=== PATIENT | female | born 1990 | race Caucasian/White ===

== ENCOUNTER 2018-12-24 11:57 | Emergency (ER) | payer MEDICAID ==
[~2018-12-24] VITALS: Ht 170.2 cm; Wt 99.8 kg
--- NOTE | 2018-12-24 12:05 | NUR ---
ED Nurse Note: Patient walked in to ER due to general body pain. She stated that she has diarrhea yesterday after eating certain food. Patient has fever 99F. Alert and oriented x4, verbally responsive. Breathing even and unlabored. No SOB.
[2018-12-24] MEDS ORDERED: NKM (12:12)
[2018-12-24 12:39] VITALS: BP 128/78
[2018-12-24 13:01] LABS: EOSINOPHILS % (AUTO) 0.2 % (0.0-3.0); HEMATOCRIT 42.9 % (37.0-47.0); HEMOGLOBIN 14.4 G/DL (12.0-16.0); LYMPHOCYTES % (AUTO) 11.1 % (20.0-45.0); MEAN CORPUSCULAR VOLUME 93 FL (80-99); MONOCYTES % (AUTO) 3.7 % (1.0-10.0); NEUTROPHILS % (AUTO) 84.1 % (45.0-75.0); PLATELET COUNT 303 K/UL (150-450); RED BLOOD COUNT 4.62 M/UL (4.20-5.40); RED CELL DISTRIBUTION WIDTH 11.5 % (11.6-14.8); WHITE BLOOD COUNT 11.4 K/UL (4.8-10.8)
[2018-12-24 13:05] LABS: APPEARANCE,URINE CLEAR; BILIRUBIN, URINE NEGATIVE (NEGATIVE); GLUCOSE, URINE (UA) NEGATIVE (NEGATIVE); KETONES,URINE 4+ (NEGATIVE); LEUKOCYTE ESTERASE ,URINE 2+ (NEGATIVE); NITRITE,URINE NEGATIVE (NEGATIVE); PH,URINE 6 (4.5-8.0); PROTEIN,URINE 1+ (NEGATIVE); UROBILINOGEN,URINE 1 MG/DL (0.0-1.0)
[2018-12-24 13:09] LABS: INR 1.1 (0.9-1.1)
[2018-12-24 13:12] LABS: COLOR,URINE YELLOW
[2018-12-24 13:48] LABS: ANION GAP 10 mmol/L (5-15); BLOOD UREA NITROGEN 9 mg/dL (7-18); CALCIUM 9.4 MG/DL (8.5-10.1); CARBON DIOXIDE 27 MMOL/L (21-32); CHLORIDE 100 MMOL/L (98-107); CREATININE 0.7 MG/DL (0.55-1.30); POTASSIUM 3.1 MMOL/L (3.5-5.1); SODIUM 137 MMOL/L (136-145)
[2018-12-24 13:53] LABS: ALANINE AMINOTRANSFERASE 12 U/L (12-78); ALBUMIN 3.7 G/DL (3.4-5.0); ALBUMIN/GLOBULIN RATIO 0.9 (1.0-2.7); ALKALINE PHOSPHATASE 65 U/L (46-116); ASPARTATE AMINO TRANSFERASE 15 U/L (15-37); BILIRUBIN,TOTAL 0.4 MG/DL (0.2-1.0)
[2018-12-24 13:58] VITALS: BP 124/80
[2018-12-24] MEDS ORDERED: ZOFRAN4 M3 ORAL (14:01)
[2018-12-24] MEDS ORDERED: CLINDESSE5.8 GM TOPIC (14:01)
[2018-12-24] MEDS ORDERED: TYLENOL EXTRA500 MG ORAL (14:01)
[2018-12-24] MEDS ORDERED: CLINDAMYCIN PHO TP (14:06)
[2018-12-24 14:18] VITALS: BP 121/60
--- NOTE | 2018-12-24 14:20 | NUR ---
ER DISCHARGE NOTE: Patient is cleared to be discharged per ERMD, pt is aox4, on room air, with stable vital signs. pt was given dc and prescription instructions, pt was able to verbalize understanding, pt id band and iv site removed without complications. pt is able to ambulate with steady gait. pt took all belongings.
--- NOTE | 2018-12-24 22:14 | Emergency Room Report ---
History of Present Illness General Chief Complaint: General Complaint Source: Patient Present Illness HPI The patient is a 28-year-old female primarily presenting for abdominal pain, nausea, and diarrhea after eating at a restaurant yesterday. Episode of diarrhea lasted approximately 2 hours yesterday and improved after using Imodium. She denies any blood in the stool. She does admit to feeling chills. She denies other symptoms including fever, dizziness, headache, chest pain, shortness of breath, melena, hematochezia, vomiting Allergies: Coded Allergies: IBUPROFEN (Verified Allergy, Intermediate, 12/24/18) PENICILLINS (Verified Adverse Reaction, Intermediate, 12/24/18) Patient History Past Medical History: see triage record Pertinent Family History: none Last Menstrual Period: some time in November Now: No Reviewed Nursing Documentation: PMH: Agreed; PSxH: Agreed Nursing Documentation-PMH Past Medical History: No History, Except For Hx Asthma: Yes Review of Systems All Other Systems: negative except mentioned in HPI Physical Exam Vital Signs Date Time Temp Pulse Resp B/P (MAP) Pulse Ox O2 Delivery O2 Flow Rate FiO2 12/24/18 12:04 99.9 96 19 148/89 (108) 97 Room Air Sp02 EP Interpretation: reviewed, normal General Appearance: no apparent distress, alert, GCS 15, non-toxic Head: normocephalic, atraumatic Respiratory: chest non-tender, lungs clear, normal breath sounds, speaking full sentences Cardiovascular #1: regular rate, rhythm, no edema Gastrointestinal: tenderness - epigastric Rectal: deferred Genitourinary: normal inspection, no CVA tenderness Musculoskeletal: back normal, gait/station normal, normal range of motion, non- tender Neurologic: alert, oriented x3, responsive, motor strength/tone normal, sensory intact, speech normal Psychiatric: judgement/insight normal, memory normal, mood/affect normal, no suicidal/homicidal ideation Skin: other - nodules of axilla, TTP Medical Decision Making PA Attestation Dr. Blue is my supervising physician. Patient management was discussed with my supervising physician Diagnostic Impression: Primary Impression: Gastroenteritis Additional Impression: Hidradenitis suppurativa ER Course he patient is a 28-year-old female primarily presenting for abdominal pain, nausea, and diarrhea after eating at a restaurant yesterday Differential diagnoses considered but not limited to: Gastroenteritis, GERD, gastritis, appendicitis, pancreatitis, among others PE: Vitals stable. Temp 99.9F initially NAD. Abdomen: Normal appearance. Non distended. No ecchymosis. Increased BS. + Epigastric TTP. No McBurney point tenderness. No guarding. No CVA tenderness Bilateral axilla have multiple nodules/pustules. Tender to palpation Labs: Leukocytosis of 11.4 Urinalysis unremarkable Lipase unremarkable Symptoms have improved after Tylenol and Zofran Patient will be discharged home with the same medication as well as clindamycin cream to be used for her hidradenitis suppurativa. She has been seen by a surgeon and was told to follow-up with them but she did not. She will now obtain an appointment as discussed for treatment for hidradenitis suppurativa. She is told to take in plenty of fluids. Pedialyte discussed. Brat diet discussed ER precautions discussed. Laboratory Tests Test 12/24/18 12:30 12/24/18 13:20 White Blood Count 11.4 K/UL (4.8-10.8) H Red Blood Count 4.62 M/UL (4.20-5.40) Hemoglobin 14.4 G/DL (12.0-16.0) Hematocrit 42.9 % (37.0-47.0) Mean Corpuscular Volume 93 FL (80-99) Mean Corpuscular Hemoglobin 31.2 PG (27.0-31.0) H Mean Corpuscular Hemoglobin Concent 33.6 G/DL (32.0-36.0) Red Cell Distribution Width 11.5 % (11.6-14.8) L Platelet Count 303 K/UL (150-450) Mean Platelet Volume 6.1 FL (6.5-10.1) L Neutrophils (%) (Auto) 84.1 % (45.0-75.0) H Lymphocytes (%) (Auto) 11.1 % (20.0-45.0) L Monocytes (%) (Auto) 3.7 % (1.0-10.0) Eosinophils (%) (Auto) 0.2 % (0.0-3.0) Basophils (%) (Auto) 1.0 % (0.0-2.0) Prothrombin Time 11.6 SEC (9.30-11.50) H Prothrombin Time INR 1.1 (0.9-1.1) PTT 31 SEC (23-33) Urine Color Yellow Urine Appearance Clear Urine pH 6 (4.5-8.0) Urine Specific [place] 1.015 (1.005-1.035) Urine Protein 1+ (NEGATIVE) H Urine Glucose (UA) Negative (NEGATIVE) Urine Ketones 4+ (NEGATIVE) H Urine Blood 1+ (NEGATIVE) H Urine Nitrite Negative (NEGATIVE) Urine Bilirubin Negative (NEGATIVE) Urine Urobilinogen 1 MG/DL (0.0-1.0) H Urine Leukocyte Esterase 2+ (NEGATIVE) H Urine RBC 0-2 /HPF (0 - 2) Urine WBC 2-4 /HPF (0 - 2) Urine Squamous Epithelial Cells Few /LPF (NONE/OCC) Urine Bacteria Few /HPF (NONE) Urine HCG, Qualitative Negative (NEGATIVE) Sodium Level 137 MMOL/L (136-145) Potassium Level 3.1 MMOL/L (3.5-5.1) L Chloride Level 100 MMOL/L (98-107) Carbon Dioxide Level 27 MMOL/L (21-32) Anion Gap 10 mmol/L (5-15) Blood Urea Nitrogen 9 mg/dL (7-18) Creatinine 0.7 MG/DL (0.55-1.30) Estimate Glomerular Filtration Rate > 60 mL/min (>60) Glucose Level 100 MG/DL (74-106) Calcium Level 9.4 MG/DL (8.5-10.1) Total Bilirubin 0.4 MG/DL (0.2-1.0) Aspartate Amino Transferase (AST) 15 U/L (15-37) Alanine Aminotransferase (ALT) 12 U/L (12-78) Alkaline Phosphatase 65 U/L (46-116) Total Protein 7.6 G/DL (6.4-8.2) Albumin 3.7 G/DL (3.4-5.0) Globulin 3.9 g/dL Albumin/Globulin Ratio 0.9 (1.0-2.7) L Lipase 62 U/L (73-393) L Lab Results Impression Leukocytosis of 11.4 Urinalysis unremarkable Last Vital Signs Date Time Temp Pulse Resp B/P (MAP) Pulse Ox O2 Delivery O2 Flow Rate FiO2 12/24/18 14:18 98.1 72 18 121/60 Room Air 12/24/18 12:04 97 Status: improved Disposition: HOME, SELF-CARE Condition: Improved Scripts Clindamycin Phosphate (Clindamycin Phosphate) 75 Ml Gel.daily 1 APPLIC TP BID, #75 ML Prov: ANANTH EAGLE 12/24/18 Ondansetron* (ZOFRAN*) 4 Mg Tablet 4 MG ORAL Q6H PRN for Nausea & Vomiting, #10 TAB Prov: ANANTH EAGLE.AAiram 12/24/18 Acetaminophen* (TYLENOL EXTRA STRENGTH*) 500 Mg Tablet 500 MG ORAL Q8H PRN for Prn Headache/Temp > 101, #30 TAB 0 Refills Prov: ANANTH EAGLE.AAiram 12/24/18 Referrals: [facility],REFERRING (PCP) Departure Forms: Return to Work Return to Work Date: Dec 27, 2018 Patient Instructions: Gastroesophageal Reflux Disease, Adult, Hidradenitis Suppurativa Additional Instructions: I discussed my findings with the patient. All questions and concerns have been answered. Treatment and medication compliance have been addressed. I advised the patient that they need to follow up with PMD in 3-5 days. Return to ED if symptoms worsen, new symptoms arise, or if needed for any reason. Patient verbalized understanding of discharge instructions. ANANTH EAGLE Dec 24, 2018 22:14
== END 2018-12-24 14:18 | disposition home or self-care (01) ==
LOC: EMR 12:30
DX: K52.9 Noninfective gastroenteritis and colitis, unspecified (principal); L73.2 Hidradenitis suppurativa; Z88.0 Allergy status to penicillin; Z88.6 Allergy status to analgesic agent; D72.829 Elevated white blood cell count, unspecified
CPT/HCPCS: 36415; 80053; 81003; 81025; 83690; 85025; 85610; 85730; 96374; 99284; J2405

== ENCOUNTER 2019-02-14 13:38 | Emergency (ER) | payer MEDICAID, OTHER ==
[~2019-02-14] VITALS: Ht 170.2 cm; Wt 86.2 kg
[~2019-02-14 13:38] MED LIST: CLINDAMYCIN PHO TP; CLINDESSE5.8 GM TOPIC; NKM; TYLENOL EXTRA500 MG ORAL; ZOFRAN4 M3 ORAL
--- NOTE | 2019-02-14 13:55 | NUR ---
ED Nurse Note: PT WALKED IN TO ER TODAY FROM WORK. AOX4. PT C/O LOWER BACK PAIN, 7/10 X TODAY AFTER ATTEMPTING TO PULL UP A HEAVY PT WHILE AT WORK. GAIT STEADY. PT DENIES ANY NUMBNESS OR TINGLING. FULL ROM OF ALL EXTREMITIES AND 5/5 MUSCLE STRENGTH.
[2019-02-14 13:56] VITALS: BP 136/88
[2019-02-14] MEDS ORDERED: Tylenol #3 tab (300mg/30mg) ORAL ONE (14:00)
--- NOTE | 2019-02-14 14:03 | NUR ---
ED Nurse Note: RADIOLOGY CALLED FOR XRAY. PT REFUSED URINE - WAIVER SIGNED BY PT AND WITNESSED BY PRIMARY RN.
[2019-02-14] MEDS ORDERED: Dexamethasone 4mg/ml vial IM ONE (14:15)
--- NOTE | 2019-02-14 14:34 | NUR ---
ED Nurse Note: PT BACK FROM CT VIA WHEELCHAIR.
--- NOTE | 2019-02-14 14:53 | Emergency Room Report ---
History of Present Illness General Chief Complaint: Lower Back Pain or Injury Source: Patient Present Illness HPI 29-year-old female with no significant past medical history here complaining of a 10 out of 10 pain and right lower back that started yesterday at work. Patient reports that she was trying to lift the patient and felt a pull in her right lower back however did not directly fall on her back. Denies any pain radiation, denies tingling and numbness, denies saddle paresthesia, urinary bowel incontinence. Patient has taken Tylenol with minimal relief. Patient reports that she is allergic to ibuprofen however it only makes her itchy but does not make her swell. Patient reports that her last menstrual period was 1 week ago and denies . Denies all other injury. Denies chest pain, shortness of breath, palpitation, abdominal pain, nausea vomiting. Allergies: Coded Allergies: IBUPROFEN (Verified Allergy, Intermediate, 12/24/18) PENICILLINS (Verified Adverse Reaction, Intermediate, 12/24/18) Patient History Past Medical History: see triage record Past Surgical History: unable to obtain Pertinent Family History: none Last Menstrual Period: 02/06/19 Now: No Immunizations: UTD Reviewed Nursing Documentation: PMH: Agreed; PSxH: Agreed Nursing Documentation-PMH Past Medical History: No History, Except For Hx Asthma: Yes Review of Systems All Other Systems: negative except mentioned in HPI Physical Exam Vital Signs Date Time Temp Pulse Resp B/P (MAP) Pulse Ox O2 Delivery O2 Flow Rate FiO2 02/14/19 13:42 97.9 76 17 142/95 (111) 99 Room Air Sp02 EP Interpretation: reviewed, normal General Appearance: no apparent distress, alert, GCS 15, non-toxic Head: normocephalic, atraumatic Eyes: bilateral eye normal inspection, bilateral eye PERRL ENT: hearing grossly normal, normal pharynx, no angioedema, normal voice Neck: full range of motion, supple, supple/symm/no masses Respiratory: chest non-tender, lungs clear, normal breath sounds, no rhonchi, no wheezing, speaking full sentences Cardiovascular #1: regular rate, rhythm, no edema, no murmur, normal capillary refill Cardiovascular #2: 2+ dorsalis pedis (R), 2+ dorsalis pedis (L) Gastrointestinal: normal bowel sounds, non tender, soft, non-distended, no guarding, no rebound Genitourinary: normal inspection, no CVA tenderness Musculoskeletal: digits/nails normal, gait/station normal, normal range of motion, non-tender, no calf tenderness, pelvis stable Neurologic: alert, oriented x3, responsive, motor strength/tone normal, sensory intact, speech normal Psychiatric: judgement/insight normal, memory normal, mood/affect normal, no suicidal/homicidal ideation Skin: no rash Lymphatic: no adenopathy Medical Decision Making PA Attestation All my diagnosis and treatment plans were reviewed ad discussed with my supervising physician Dr. Llanes Diagnostic Impression: Primary Impression: Lumbar strain ER Course 29-year-old female with no significant past medical history here complaining of a 10 out of 10 pain and right lower back that started yesterday at work. Patient reports that she was trying to lift the patient and felt a pull in her right lower back however did not directly fall on her back. Denies any pain radiation, denies tingling and numbness, denies saddle paresthesia, urinary bowel incontinence. Patient has taken Tylenol with minimal relief. Patient reports that she is allergic to ibuprofen however it only makes her itchy but does not make her swell. Patient reports that her last menstrual period was 1 week ago and denies . Denies all other injury. Denies chest pain, shortness of breath, palpitation, abdominal pain, nausea vomiting. Ddx considered but are not limited to: Lumbar spine sprain, strain, fracture, contusion, neuropathy Vital signs: are WNL, pt. is afebrile H&PE are most consistent with: lumbar strain ORDERS: Lumbar spine x-ray, prednisone, flexeril, tylenol. ER intervention: dexametasone DISCHARGE: At this time pt. is stable for d/c to home. Will provide printed patient care instructions, and any necessary prescriptions. Care plan and follow up instructions have been discussed with the patient prior to discharge. I advised the patient to follow-up with her primary care provider and also get a referral for physical therapy take medication as directed if worsening symptoms return to the emergency room Other X-Ray Diagnostic Results Other X-Ray Diagnostic Results : X-Ray ordered: lumbar X ray # of Views/Limited Vs Complete: 3 View Indication: Pain EP Interpretation: Yes YOSEPH Xray: Interpretation reviewed, by supervising MD, and agrees with findings. Interpretation: no dislocation, no soft tissue swelling, no fractures Impression: No acute disease Electronically Signed by: Noel Velez PA-C Last Vital Signs Date Time Temp Pulse Resp B/P (MAP) Pulse Ox O2 Delivery O2 Flow Rate FiO2 02/14/19 13:56 98.1 74 16 136/88 100 Room Air Disposition: HOME, SELF-CARE Condition: Stable Scripts Lidocaine Patch* (Lidoderm Patch*) 1 Each Adh..patch 1 PATCH TOPIC DAILY, #10 PATCH Patch(es) may remain in place for up to 12 hours in any 24-hour period. Prov: Noel Andrew 02/14/19 Acetaminophen* (ACETAMINOPHEN EXTRA STRENGTH*) 500 Mg Tablet 1000 MG ORAL Q6H, #30 TAB 0 Refills Prov: Noel Andrew 02/14/19 Cyclobenzaprine Hcl* (FLEXERIL*) 10 Mg Tablet 10 MG ORAL THREE TIMES A DAY for 3 Days, #10 TAB Prov: Noel Andrew 02/14/19 Prednisone* (PREDNISONE*) 20 Mg Tablet 20 MG ORAL BID for 5 Days, #10 TAB 0 Refills Prov: Noel Andrew 02/14/19 Patient Instructions: Lumbosacral Strain Additional Instructions: Take medication as directed follow-up with your primary care provider for physical therapy referral to avoid strenuous physical activity if worsening symptoms return to the emergency room Noel Andrew Feb 14, 2019 14:53
[2019-02-14] MEDS ORDERED: CYCLOBENZAPRINE10 MG ORAL (14:55)
[2019-02-14] MEDS ORDERED: ACETAMINOPHEN500 M3 ORAL (14:55)
[2019-02-14] MEDS ORDERED: PREDNISONE20 MG ORAL (14:55)
--- NOTE | 2019-02-14 14:58 | NUR ---
ED Nurse Note: PT LAYING PEACEFULLY IN BED IN NAD. AOX4. PRESCRIPTIONS AND DISCHARGE PAPERWORK EXPLAINED TO PT. PT VERBALIZES UNDERSTANDING AND ALL QUESTIONS ANSWERED. PRESCRIPTIONS AND DISCHARGE PAPERWORK GIVEN TO PT AND ID WRISTBAND REMOVED. PT WALKED OUT OF ER WITH STEADY GAIT AND ALL BELONGINGS.
[2019-02-14 14:59] VITALS: BP 134/86
[2019-02-14] MEDS ORDERED: LIDODERM700 M1 TOPIC (15:01)
--- NOTE | 2019-02-14 17:30 | Diagnostic Imaging Report ---
Indication: Pain Technique: 3 views of the lumbar spine Comparison: None Findings: Bony alignment is normal. Vertebral body heights are preserved. The disc spaces are preserved. The pedicles are intact. Sacral arches are preserved. Sacroiliac joint spaces are preserved Impression: Negative
== END 2019-02-14 15:45 | disposition home or self-care (01) ==
LOC: EMR 15:35
DX: S39.012A Strain of muscle, fascia and tendon of lower back, initial encounter (principal); J45.909 Unspecified asthma, uncomplicated; Z88.0 Allergy status to penicillin; Z88.8 Allergy status to other drugs, medicaments and biological substances; X50.9XXA Other and unspecified overexertion or strenuous movements or postures, initial encounter; Y93.F2 Activity, caregiving, lifting; Y92.239 Unspecified place in hospital as the place of occurrence of the external cause; Y99.0 Civilian activity done for income or pay
CPT/HCPCS: 72020; 96372; 99283; J1100